=== PATIENT | female | born 1950 | race Caucasian/White ===

== ENCOUNTER 2024-10-05 12:26 | Emergency (ER) | payer MEDICARE ==
[~2024-10-05] VITALS: Ht 160 cm; Wt 54.5 kg
[~2024-10-05 12:26] MED LIST: BIOTIN5000 MC2 PO; CYMBALTA30 MG PO; CYMBALTA60 MG PO; KEFLEX500 MG PO; OMEPRAZOLE DR40 MG PO; OXYCODONE5 M1 PO; ROXICODONE15 M1 PO; SOD CHLORIDE1 GM PO; TOPROL XL50 MG PO; [UNRECOGNIZED DRUG - OTHER] PO
[2024-10-05 12:32] VITALS: BP 109/70
[2024-10-05 12:57] LABS: BASO% 0.8 % (0-3); EOS% 2.9 % (0-8); HEMATOCRIT 35.6 % (37.0-47.0); HEMOGLOBIN 12.2 g/dl (12.0-16.0); LYMPH% 36.1 % (15-41); MEAN CORPUSCULAR HGB 36.5 pG CALC (26.0-32.0); MEAN CORPUSCULAR HGB CONC 34.3 g/dL CAL (32.0-36.0); MONO% 16.6 % (2-13); NEUT# 1.65 thou/uL (2.00-7.15); NEUT% 43.6 % (42-76); RED BLOOD COUNT 3.34 mill/uL (4.20-5.60); RED CELL DISTRI WIDTH 13.9 % (11.5-15.5)
[2024-10-05 13:00] VITALS: BP 90/55
[2024-10-05 13:08] LABS: ALBUMIN 3.9 g/dL (3.2-5.0); ALKALINE PHOSPHATASE 59 u/l (38-126); BUN 6 mg/dL (8-23); BUN/CREATININE RATIO 15 (12-20 (CALC)); CARBON DIOXIDE 29 mmol/l (22-30); CHLORIDE 98 mmol/l (95-108); CREATININE 0.4 mg/dL (0.5-1.0); ESTIMATED GFR 105 ML/MIN (>=90 (CALC)); POTASSIUM 3.5 mmol/l (3.5-5.1); TOTAL PROTEIN 6.5 g/dL (6.3-8.2)
[2024-10-05 13:09] LABS: ANION GAP 16 (6-22 (CALC)); BILIRUBIN, TOTAL 0.6 mg/dL (0.02-1.3); MEAN CELL VOLUME 106.6 fL CALC (80.0-100.0); SGOT/AST 122 u/l (9-36); SODIUM 139 mmol/l (137-146)
[2024-10-05 13:12] VITALS: BP 90/55
== END 2024-10-05 13:28 | disposition left against medical advice (07) ==
LOC: ED 12:26
PROVIDERS: Nurse Practitioner Family
PROC: 0HQ0XZZ Repair Scalp Skin, External Approach (ICD-10-PCS; principal; 2024-10-05)
DX: S01.01XA Laceration without foreign body of scalp, initial encounter (principal); I10 Essential (primary) hypertension; G62.9 Polyneuropathy, unspecified; W18.39XA Other fall on same level, initial encounter